=== PATIENT | female | born 1945 | race Caucasian/White ===

== ENCOUNTER 2016-09-26 21:55 | Emergency (ER) | payer MEDICARE ==
[2016-09-27] MEDS ORDERED: Tetan/Diph/Pertus SYR(Tdap)* 0.5 ML SYR(BOOSTRIX) use SYR IM ONE (00:26)
--- NOTE | 2016-09-27 00:37 | ED ---
Laceration/Wound HPI - HPI Summary HPI Summary: Patient was walking at home when she slipped and suffered a mechanical fall, landing forward and striking her left forehead on the floor. She denies LOC, ESCALERA , vision changes, neck pain or vomiting. Her was home and saw her slip. He helped her up and she presents with him and her daughter. She is unsure if her tetanus is UTD. She takes 81mg of aspirin daily. - History of Current Complaint Stated Complaint: FALL/ EYE INJURY Time Seen by Provider: 09/27/16 00:16 Hx Obtained From: Patient, Family/Haul Cane Brakeman Mechanism of Injury: Sharp/Blunt Trauma Onset/Duration: Sudden Onset Aggravating: Nothing Alleviating: Nothing Timing: Constant Onset Severity: Mild Current Severity: Mild Pain Intensity: 3 Associated Signs & Symptoms: Pain, Bruising - left eyebrow - Additional Pertinent History Primary Care Physician: [id number] - Allergy/Home Medications Allergies/Adverse Reactions: Allergies Allergy/AdvReac Type Severity Reaction Status Date / Time No Known Allergies Allergy Verified 11/13/15 19:20 PMH/Surg Hx/FS Hx/Imm Hx Endocrine/Hematology History: Reports: Hx Bone Marrow Disease - MDS, Hx Anemia Cardiovascular History: Reports: Hx Hypertension Respiratory History: Reports: Hx Chronic Obstructive Pulmonary Disease (COPD) GI History: Reports: Other GI Disorders - active bleeding hemorrhoid Musculoskeletal History: Reports: Hx Orthopedic Injury - Left humerus, wrist fx , L shoulder dislocation 10/2015 - Surgical History Surgery Procedure, Year, and Place: Appendectomy, Tonsillectomy Infectious Disease History: Denies: Traveled Outside the [place] in Last 30 Days - Family History Known Family History: Positive: None - Social History Occupation: Retired Lives: With Family Alcohol Use: None Hx Substance Use: No Substance Use Type: Reports: None Smoking Status (MU): Former Smoker Type: Cigarettes Review of Systems Negative: Photophobia, Blurred Vision Positive: Bruising, Other - 2 cm laceration to left eyebrow Negative: Headache, Paresthesia, Numbness All Other Systems Reviewed And Are Negative: Yes Physical Exam Triage Information Reviewed: Yes Vital Signs On Initial Exam: Initial Vitals Temp Pulse Resp BP Pulse Ox 98 F 81 18 143/60 99 09/26/16 21:59 09/26/16 21:59 09/26/16 21:59 09/26/16 21:59 09/26/16 21:59 Vital Signs Reviewed: Yes Appearance: Positive: Well-Appearing, Well-Nourished, Pain Distress Skin: Positive: Warm, Skin Color Reflects Adequate Perfusion, Dry, Soft Head/Face: Positive: Normal Head/Face Inspection Eyes: Positive: EOMI, PAVEL, Conjunctiva Clear ENT: Positive: Hearing grossly normal, Pharynx normal, TMs normal Neck: Positive: Supple, Nontender Respiratory/Lung Sounds: Positive: Breath Sounds Present Cardiovascular: Positive: RRR Musculoskeletal: Positive: Strength/ROM Intact. Negative: Edema Left, Edema Right Neurological: Positive: Sensory/Motor Intact, Alert, Oriented to Person Place, Time, CN Intact II-III, NV Bundle Intact Distally Psychiatric: Positive: Affect/Mood Appropriate AVPU Assessment: Alert Procedures - Laceration/Wound Repair 1 Location: face Description: Linear Anesthesia: Local, 2.0%, Lido Length, Depth and Shape: 2 cm long, 5mm wide, 3mm deep Irrigated w/ Saline (ccs): 200 Laceration/Wound Explored: clean Closure: Single Layer Debridement: minimal Suture Type: Prolene - 5.0 Number of Sutures: 7 Layer Closure?: No Sterile Dressing Applied?: No Diagnostics - Vital Signs Vital Signs Temp Pulse Resp BP Pulse Ox 09/26/16 23:00 80 18 136/60 99 09/26/16 21:59 98 F 81 18 143/60 99 - Laboratory Lab Statement: Any lab studies that have been ordered have been reviewed, and results considered in the medical decision making process. - CT No standard instances CT Interpretation: No Acute Changes CT Interpretation Completed By: Radiologist Laceration Repair Course/Dx - Differential Dx Differental Diagnoses: Abrasion, Abscess, Avulsion, Dehiscence, Healing Wound, Hematoma, Laceration, Puncture Wound, Suture Removal - Clinical Impression Provider Diagnoses: Laceration of left eyebrow, Head injury Discharge - Discharge Plan Condition: Stable Disposition: HOME Patient Education Materials: Facial Laceration (ED), Head Injury (ED) Referrals: Francheska Howard MD [Primary Care Provider] - Additional Instructions: Keep your wound clean and dry for the next 24 hours. You may shower after 24 hours. Pat dry and cover with a clean, dry band-aid if you are going to be in a "dirty" environment, otherwise it can remain open to air. Apply triple antibiotic for the next 2-3 days. Do not soak the wound in any body of water until the sutures are removed in 5 days. Elevate your head above your heart and use Tylenol for pain. Follow-up with Dr. Howard as scheduled and have your sutures removed in 5 days with her office or return to the emergency department or convenient care to have them taken out. Return to the emergency department sooner if your symptoms worsen.
[2016-09-27 02:38] VITALS: BP 149/66
--- NOTE | 2016-09-27 08:11 | RAD ---
Indication: Head injury after fall. Patient on anticoagulants. CT of the brain was performed without IV contrast. Ventricular structures are midline. No midline shift is noted. There is no evidence of intracranial mass or hemorrhage. Periventricular lucency consistent with chronic ischemic White matter change is noted. Tiny hypodensity in the left thalamus likely represent old lacunar infarct. Mastoid air cells, paranasal sinuses are clear. No prior study is available for comparison. IMPRESSION: No intracranial mass or hemorrhage. Chronic ischemic White matter change is noted.
== END 2016-09-27 02:37 | disposition home or self-care (01) ==
LOC: ED 21:55
DX: S00.12XA Contusion of left eyelid and periocular area, initial encounter (principal); S01.112A Laceration without foreign body of left eyelid and periocular area, initial encounter; S09.90XA Unspecified injury of head, initial encounter; W19.XXXA Unspecified fall, initial encounter; Y93.9 Activity, unspecified; Y92.9 Unspecified place or not applicable; Y99.9 Unspecified external cause status; Z87.891 Personal history of nicotine dependence
CPT/HCPCS: 12001; 70450; 90471; 90715; 99282

== ENCOUNTER 2017-11-16 10:37 | Inpatient (IN) | payer MEDICARE, BC ==
--- NOTE | 2017-11-16 12:25 | ED ---
Shortness of Breath - HPI Summary HPI Summary: This is scribe Sandy Melgoza documenting for attending Kike Figueroa MD. 72 year old F [facility] accompanied by and daughter complains of increasing shortness of breath since four days ago. Symptoms aggravated by nothing. Symptoms alleviated by nothing. Daughter states that patient hasn't felt well since receiving her last Procrit shot on 11/04/17. Daughter reports fatigue and increasing cough. Also inability to ambulate x2 days, patient fell twice yesterday. She uses O2 at home per daughter. Patient has hx COPD. - History of Current Complaint Chief Complaint: EDShortnessOfBreath Time Seen by Provider: 11/16/17 12:12 Hx Obtained From: Family/Ice Grinder - daughter Onset/Duration: Lasting Days - 4, Still Present Timing: Constant Aggrevating Factors: Nothing Alleviating Factors: Nothing - Allergy/Home Medications Allergies/Adverse Reactions: Allergies Allergy/AdvReac Type Severity Reaction Status Date / Time No Known Allergies Allergy Verified 11/13/15 19:20 Home Medications: Home Medications Albuterol HFA INHALER* [Ventolin HFA Inhaler*] 2 puff INH Q4H PRN 11/16/17 [ History Confirmed 11/16/17] Aspirin EC TAB* [Ecotrin EC Low Dose 81 MG*] 81 mg PO DAILY 11/16/17 [History Confirmed 11/16/17] Budesonide/Formote 160/4.5(NF) [Symbicort 160/4.5 (NF)] 1 puff INH BID 11/16/17 [History Confirmed 11/16/17] Docusate CAP* [Colace Cap*] 100 mg PO BID PRN 11/16/17 [History Confirmed ] Ibandronate TAB(NF) [Boniva(NF)] 150 mg PO MONTHLY 11/16/17 [History Confirmed 11/16/17] Levalbuterol 0.63MG/3ML NEB* [Xopenex 0.63MG/3ML NEB*] 0.63 mg INH Q4H PRN 11/16 [History Confirmed 11/16/17] guaiFENesin ER TAB [Mucinex*] 600 mg PO BID PRN 11/16/17 [History Confirmed ] PMH/Surg Hx/FS Hx/Imm Hx Previously Healthy: No Endocrine/Hematology History: Reports: Hx Bone Marrow Disease - MDS, Hx Anemia Cardiovascular History: Reports: Hx Hypertension Respiratory History: Reports: Hx Chronic Obstructive Pulmonary Disease (COPD) GI History: Reports: Other GI Disorders - active bleeding hemorrhoid Musculoskeletal History: Reports: Hx Orthopedic Injury - Left humerus, wrist fx , L shoulder dislocation 10/2015 - Surgical History Surgery Procedure, Year, and Place: Appendectomy, Tonsillectomy Infectious Disease History: No Infectious Disease History: Denies: Traveled Outside the [place] in Last 30 Days - Family History Known Family History: Positive: Other - Mother had breast CA, father had colon CA - Social History Alcohol Use: None Hx Substance Use: No Substance Use Type: Reports: None Hx Tobacco Use: Yes Smoking Status (MU): Former Smoker Type: Cigarettes Review of Systems Positive: Fatigue, Other - inability to ambulate x2 days, fell twice yesterday Positive: Shortness Of Breath - x4 days, Cough All Other Systems Reviewed And Are Negative: Yes Physical Exam - Summary Physical Exam Summary: Appearance: The patient is well-nourished in no acute distress and in no acute pain. Skin: The skin is warm and dry and skin color reflects adequate perfusion. HEENT: The head is normocephalic and atraumatic. The pupils are equal and reactive. The conjunctivae are clear and without drainage. Nares are patent and without drainage. Mouth reveals moist mucous membranes and the throat is without erythema and exudate. The external ears are intact. The ear canals are patent and without drainage. The tympanic membranes are intact. Neck: The neck is supple with full range of motion and non-tender. There are no carotid bruits. There is no neck vein distension. Respiratory: Coarse crackles on the left Cardiovascular: Heart is regular rate and rhythm. There is no murmur or rub auscultated. There is no peripheral edema and pulses are symmetrical and equal. Abdomen: The abdomen is soft and non-tender. There are normal bowel sounds heard in all four quadrants and there is no organomegaly palpated. Musculoskeletal: There is no back tenderness noted. Extremities are non-tender with full range of motion. There is good capillary refill. There is no peripheral edema or calf tenderness elicited. Neurological: Patient is stuporous but arouses to voice and answers questions Psychiatric: The patient has an appropriate affect and does not exhibit any anxiety or depression. Triage Information Reviewed: Yes Vital Signs On Initial Exam: Initial Vitals Temp Pulse Resp BP Pulse Ox 98.5 F 91 20 125/44 88 11/16/17 10:39 11/16/17 10:39 11/16/17 10:39 11/16/17 10:39 11/16/17 10:39 Vital Signs Reviewed: Yes Diagnostics - Vital Signs Vital Signs Temp Pulse Resp BP Pulse Ox 11/16/17 12:09 20 156/71 11/16/17 11:56 98.3 F 109 20 128/53 30 11/16/17 10:39 98.5 F 91 20 125/44 88 - Laboratory Result Diagrams: 11/16/17 11:47 11/16/17 11:47 Lab Statement: Any lab studies that have been ordered have been reviewed, and results considered in the medical decision making process. - Radiology CXR Radiology Interpretation Completed By: Radiologist - 1. LEFT BASILAR INFILTRATE , RECOMMEND FOLLOW-UP CHEST X-RAYS TO RESOLUTION. 2. COPD. ED physician has reviewed this report. - CT Brain CT Interpretation Completed By: Radiologist - 1. NO EVIDENCE FOR GROSS ACUTE INFARCT, MASS EFFECT OR HEMORRHAGE. 2. 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 3. FINDINGS SUGGESTIVE OF MILD CHRONIC SMALL VESSEL ISCHEMIC CHANGES. ED physician has reviewed this report. Course/Dx - Course Course Of Treatment: Ms. Coyne was brought in by her family with a concern that she has been short of breath for several days and now her mental status has decreased. On arrival she was mildly stuporous but would arouse to voice and could answer questions mostly appropriately. Chest x-ray and labs were obtained as well as an ABG which revealed her to be quite hypercarbic. She was placed on BiPAP and the hospitalists were consult her for admission. - Diagnoses Provider Diagnoses: Altered mental status, Hypercarbia - Physician Notifications Discussed Care of Patient With: Ovi St Time Discussed With Above Provider: 14:00 Instructed by Provider To: Other - Dr. St, hospitalist, agrees to admit patient Discharge - Sign-Out/Discharge Documenting (check all that apply): Patient Departure - Admit - Discharge Plan Condition: Fair Disposition: ADMITTED TO [facility] - Billing Disposition and Condition Condition: FAIR Disposition: Admitted to [facility]
[2017-11-16 12:33] LABS: ABS Basophils 0 10^3/ul (0-0.2); ABS Eosinophils 0 10^3/ul (0-0.6); ABS Lymphocytes 0.5 10^3/ul (1.0-4.8); ABS Monocytes 0.7 10^3/ul (0-0.8); ABS Neutrophils 8.4 10^3/ul (1.5-7.7); ABS Nucleated RBC 0 10^3/ul; Eosinophil % 0.1 % (0-6); Hematocrit 34 % (35-47); Hemoglobin 10.1 g/dl (12.0-16.0); Lymphocyte % 4.7 % (25-47); Mean Corpuscular HGB Conc 30 g/dl (31-36); Mean Corpuscular Hemoglobin 31 pg (27-31); Mean Corpuscular Volume 104 fL (80-97); Mean Platelet Volume 7.8 um3 (7.4-10.4); Nucleated Red Blood Cells % 0.1; Platelet Count 214 10^3/ul (150-450); Red Cell Distribution Width 19 % (10.5-15); White Blood Count 9.5 10^3/ul (3.5-10.8)
[2017-11-16 12:35] LABS: EGFR Non-African American 35.5 (>60)
[2017-11-16] MEDS ORDERED: NS 0.9% 1000 ML* 1,000 ML IV ONE (13:20)
--- NOTE | 2017-11-16 14:48 | RAD ---
INDICATION: Altered mental status. COMPARISON: There are no prior studies available for comparison. TECHNIQUE: A portable view of the chest was obtained. FINDINGS: The heart appears mildly enlarged. There is mild diffuse prominence of the interstitial markings and a focal infiltrate present at the left lung base. The lungs are hyperinflated. There is an old healed fracture of the proximal left humerus. IMPRESSION: 1. LEFT BASILAR INFILTRATE, RECOMMEND FOLLOW-UP CHEST X-RAYS TO RESOLUTION. 2. COPD.
--- NOTE | 2017-11-16 14:59 | RAD ---
INDICATION: Altered mental status. COMPARISON: Correlation is made with a prior CT of the brain from September 27, 2016. TECHNIQUE: Contiguous axial sections of the brain were obtained from the skull base to the vertex without contrast. FINDINGS: The ventricles, cisterns and sulci are enlarged consistent with age-related atrophy. There are small areas of decreased density in the subcortical and periventricular white matter suggestive of mild chronic small vessel ischemic changes. There appears to be an old lacunar infarct in the left lentiform nucleus. There is no evidence for hemorrhage. No significant focal osseous abnormality is seen. The visualized portion of the paranasal sinuses and mastoid air cells appear clear. IMPRESSION: 1. NO EVIDENCE FOR GROSS ACUTE INFARCT, MASS EFFECT OR HEMORRHAGE. 2. 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 3. FINDINGS SUGGESTIVE OF MILD CHRONIC SMALL VESSEL ISCHEMIC CHANGES.
[2017-11-16] MEDS ORDERED: guaiFENesin ER TAB 600 MG PO PRN (16:10)
[2017-11-16] MEDS ORDERED: Docusate CAP* 100 MG PO PRN (16:10)
[2017-11-16] MEDS ORDERED: Levalbuterol 0.63MG/3ML NEB* UNIT OF USE INH PRN ×2 (16:10→17:44)
[2017-11-16] MEDS ORDERED: methylPREDNISolone 125 MG* 2 ML VIAL IV ONE (16:32)
[2017-11-16] MEDS ORDERED: Spiriva Inhaler DEVICE* 1 EACH DEVICE SCH (17:00)
[2017-11-16] MEDS ORDERED: Tiotropium CAP.INH* CAP.INH/18 MCG (USE ORDER SET !) INH SCH (17:00)
[2017-11-16] MEDS ORDERED: Ipratropium 0.5MG/2.5ML NEB* 0.5 MG/2.5 ML NEB.SOLN INH PRN ×2 (17:06→17:48)
--- NOTE | 2017-11-16 17:30 | CONSULT ---
Consult Consult: CC: Weakness HPI: 72F with MDS, Severe COPD on home o2 presents with weakness. The patient is confused and is unable to provide history. History obtained from the family. The patient has been weak for the past 4 days as well as short of breath. They deny any fever or chills. She does have a small cough. They brought her to the ER and was found have acute on chronic respiratory failure with a pCO2 of 160. She was started on bipap and admitted to ICU. ROS - unable 2/2 AMS PMHx - MDS, COPD on home o2 4.5L PSHx - Denies All - nkda SocHx - former smoker, no drugs, no etoh FamHx - denies PE Vital Signs: Temp Pulse Resp BP Pulse Ox 97.8 F 101 20 151/67 97 11/16/17 15:23 11/16/17 17:00 11/16/17 17:00 11/16/17 16:39 11/16/17 17:00 Gen - chronically ill HEENT - NCAT, EOMI Neck - no jvd, no thyromegaly CV - s1/s2, tachy Pulm - cta, +ronchi L > R, mild wheeze Abd - soft, nt, nd Ext - trace edema Neuro - Oriented only to self, following commands, moving all extremities Labs Laboratory Results - last 24 hr 11/16/17 11/16/17 11/16/17 11:47 11:47 11:47 WBC 9.5 RBC 3.30 L Hgb 10.1 L Hct 34 L MCV 104 H MCH 31 MCHC 30 L RDW 19 H Plt Count 214 MPV 7.8 Neut % (Auto) 87.6 H Lymph % (Auto) 4.7 L Pitt % (Auto) 7.3 H Eos % (Auto) 0.1 Baso % (Auto) 0.3 Absolute Neuts (auto) 8.4 H Absolute Lymphs (auto) 0.5 L Absolute Monos (auto) 0.7 Absolute Eos (auto) 0 Absolute Basos (auto) 0 Absolute Nucleated RBC 0 Nucleated RBC % 0.1 Patient Temperature ABG pH ABG pH (Temp Correct) ABG pCO2 ABG pCO2 (Temp Corrct ABG pO2 ABG pO2 (Temp Correct ABG HCO3 ABG O2 Saturation ABG Base Excess Respiration Rate O2 Delivery Device Ventilator Type Vent Mode FiO2 Inspiratory Time PEEP Pressure Support Pressure Control EPAP IPAP BiPAP Sodium 141 Potassium 5.0 Chloride 94 L Carbon Dioxide 44 H* Anion Gap 3 BUN 55 H Creatinine 1.45 H Est GFR ( Amer) 43.0 Est GFR (Non-Af Amer) 35.5 BUN/Creatinine Ratio 37.9 H Glucose 146 H Lactic Acid 0.4 L Calcium 9.9 Total Bilirubin 0.40 AST 15 ALT 14 Alkaline Phosphatase 66 Troponin I 0.04 H* B-Natriuretic Peptide Total Protein 7.7 Albumin 3.7 Globulin 4.0 Albumin/Globulin Ratio 0.9 L Procalcitonin 11/16/17 11/16/17 11/16/17 11:47 11:47 16:15 WBC RBC Hgb Hct MCV MCH MCHC RDW Plt Count MPV Neut % (Auto) Lymph % (Auto) Pitt % (Auto) Eos % (Auto) Baso % (Auto) Absolute Neuts (auto) Absolute Lymphs (auto) Absolute Monos (auto) Absolute Eos (auto) Absolute Basos (auto) Absolute Nucleated RBC Nucleated RBC % Patient Temperature Not Reportable ABG pH 7.07 L* ABG pH (Temp Correct) Not Reportable ABG pCO2 Not Reportable ABG pCO2 (Temp Corrct 162 H* ABG pO2 137 H ABG pO2 (Temp Correct Not Reportable ABG HCO3 TNP ABG O2 Saturation 99.3 H ABG Base Excess TNP Respiration Rate Not Reportable O2 Delivery Device nasal cannula 6lpm Ventilator Type Not Reportable Vent Mode Not Reportable FiO2 Not Reportable Inspiratory Time Not Reportable PEEP Not Reportable Pressure Support Not Reportable Pressure Control Not Reportable EPAP Not Reportable IPAP Not Reportable BiPAP Not Reportable Sodium Potassium Chloride Carbon Dioxide Anion Gap BUN Creatinine Est GFR ( Amer) Est GFR (Non-Af Amer) BUN/Creatinine Ratio Glucose Lactic Acid Calcium Total Bilirubin AST ALT Alkaline Phosphatase Troponin I B-Natriuretic Peptide 167 H Total Protein Albumin Globulin Albumin/Globulin Ratio Procalcitonin 0.3 Imaging 11/16/17 CXR IMPRESSION: 1. LEFT BASILAR INFILTRATE, RECOMMEND FOLLOW-UP CHEST X-RAYS TO RESOLUTION. 2. COPD. 11/16/17 CT Head IMPRESSION: 1. NO EVIDENCE FOR GROSS ACUTE INFARCT, MASS EFFECT OR HEMORRHAGE. 2. 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 3. FINDINGS SUGGESTIVE OF MILD CHRONIC SMALL VESSEL ISCHEMIC CHANGES 11/16/17 EKG Sinus Tach Impression 72F with MDS, severe copd on home o2 presents with COPD exacerbation 2/2 community acquired pneumonia Plan Neuro - AMS - 2/2 hypercapnea - CT head negative for acute process CV - tachycardia - 2/2 pna and copd exacerbation - BP stable - check tte Pulm - copd exacerbation - severe hypercapnea - solumedrol iv q12 - nebulizers q4 and prn - abx for pna - bipap - monitor abg ID - cap - left basilar infiltrate on cxr - empiric ceftriaxone and azithro - f/u blood cultures - check urine pneumo/legionella ag - check ua - serial lactates - iv hydration GI - diet as tolerated Renal - monitor lytes - monitor i/o Heme - MDS - monitor cbc - keep hgb > 7 Endo - check fs Lines - piv PPx - gi/dvt Full Code - family to discuss goals of care Admit to ICU Critical Care Time: 55 minutes
[2017-11-16] MEDS: cefTRIAXone(*) 1 GM in NS 0.9% 50 ML* 50 ML IVPB SCH (18:12)
[2017-11-16] MEDS: Levalbuterol 0.63MG/3ML NEB* UNIT OF USE INH SCH ×2 (18:24→22:56)
[2017-11-16] MEDS: Ipratropium 0.5MG/2.5ML NEB* 0.5 MG/2.5 ML NEB.SOLN INH SCH ×2 (18:25→22:56)
[2017-11-16 18:53] LABS: Urine Appearance Cloudy; Urine Blood Negative (Negative); Urine Color Yellow; Urine Ketones Negative (Negative); Urine Protein 2+(100 mg/dL) (Negative); Urine Red Blood Cell Absent (Absent); Urine Specific Gravity 1.018 (1.010-1.030); Urine Urobilinogen Negative (Negative); Urine White Blood Cell Trace(0-5/hpf) (Absent)
[2017-11-16] MEDS: Azithromycin IV(*) 500 MG in NS 0.9% 250 ML* 250 ML IVPB SCH (18:57)
--- NOTE | 2017-11-16 21:47 | HP ---
HISTORY AND PHYSICAL: DATE OF ADMISSION: 11/16/17 ADMITTING PROVIDER: Ovi St MD ATTENDING PHYSICIAN: Dr. Abel, [place], [place], . OUTPATIENT ANIME DESIGNER: Dr. Mix [place]. LOCAL PRIMARY CARE PHYSICIAN: Blessing Lim MD CHIEF COMPLAINT: Progressive shortness of breath, fatigue, lethargy, inability to walk, and constipation. HISTORY OF PRESENT ILLNESS: Flavia Coyne is a 72-year-old female with past medical history of myelodysplasia, severe COPD with chronic respiratory failure , (using 4.5 L 24 hours a day), who usually resides in [place], [place]. She has had 2 episodes of outpatient diagnosis of pneumonia, sounds like she was treated with what family thinks was azithromycin first in June and then again likely in July along with a prednisone taper at some point, but not within the last few months. The patient follows up with Heme/Onc Dr. Rita Howard for Procrit shots for her myelodysplasia. She last received on 11/04/17. This usually improves her fatigue, but she has actually worsened since that time - very tired and stopped going out of the house for the last 10 days. She has stopped walking for the last 36 hours (last Thursday night), and has been wheelchair bound. She saw PCP Dr. Lim today, who referred her to the emergency room. She was found to be requiring 6 L of oxygen, of note, recorded at 88% on her 4.5 L. She has been tachycardic up to 109. She had initial elevated troponin of 0.04. EKG shows sinus tachycardia. No ischemic changes. She had a CT of the head, which showed an old left lacunar infarct. No acute process. An ABG is ordered and pending given her lethargy and confusion in the room. She did, of note, have an elevated bicarb of 44, previous baseline last year in the high 30s to 40s. Her daughter, Carmen Mace, gives most of the history, says on review of systems, she denies fever, is chronically cool, has no nausea, vomiting, abdominal pain, or night sweats. She has been constipated and had mag citrate within the last week. Last bowel movement was approximately Thursday. She had been sleeping a lot, very fatigued, denies any chest pain or pressure. The patient was not initially able to give much history , just stating "Flavia Alejandro" in response to most of questions. She would eventually say 2017 and [place], [place] as the time and location respectively and said she was feeling a little bit better since presentation to ED. Chest x- ray showed concern for left basilar infiltrate. She is being started on ceftriaxone, azithromycin after urine culture is obtained. Blood cultures were also obtained. PAST MEDICAL HISTORY: Myelodysplasia, severe COPD with chronic hypoxic respiratory failure, 4.5 L. MEDICATIONS: She is on: 1. Ventolin 2 puffs inhaled q.4 hours p.r.n.. 2. Xopenex 0.63 mg inhaled q. 4 hours p.r.n. 3. Docusate 100 mg p.o. b.i.d. p.r.n. 4. Symbicort 1 puff inhaled b.i.d. 5. Mucinex 600 mg p.o. b.i.d. p.r.n. 6. Boniva 150 mg p.o. monthly. 7. Aspirin 81 mg daily. ALLERGIES: No known drug allergies. FAMILY HISTORY: Mother had breast cancer. Father had colon cancer. SOCIAL HISTORY: She was a former smoker, quit approximately 20 years ago, multiple packs a day for most of her adult life and approximately 60 to 70 pack years. No alcohol use. REVIEW OF SYSTEMS: A complete 14-point review of systems negative except as per HPI and somewhat limited by the patient's mental status and provided by her daughter Carmen Mace. PHYSICAL EXAMINATION GENERAL APPEARANCE: The patient looks acutely ill, barely responsive, and very lethargic, saying her name initially "Flavia Alejandro" to questions. VITAL SIGNS: Temperature 97.8, pulse rate 100, respiratory rate 18, saturation 100%, blood pressure 148/64. HEENT: Normocephalic, atraumatic. Pupils are equal, round, and reactive to light. Extraocular motions intact. LUNGS: Distant lung sounds bilaterally with some expiratory wheezing. CARDIAC: Tachycardic, regular. No murmurs, rubs, or gallops. ABDOMEN: Soft, nontender, and nondistended. EXTREMITIES: Warm and well perfused. 1 to 2+ peripheral edema. 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 She seems to have a slight right facial droop, that improves with smiling. She is able to raise her right lower extremity with hip flexion at least 4+/5. Left lower extremity is 3- to 2+. DIAGNOSTIC STUDIES/LAB DATA: White count 9.5, hemoglobin 10.1, hematocrit 34, MCV 104, platelets 214. Sodium 141, potassium 5.0, chloride 94, carbon dioxide 44, creatinine 1.45, glucose 146, lactic acid 0.4. Total bili 0.4, AST 15, ALT 14, alk phos 66. Troponin 0.04. Procalcitonin 0.3. Now just returning is the ABG, pH 7.07, PCO2 162, PO2 137, bicarb not performed. Chest x-ray demonstrated left basilar infiltrate and COPD. CT of the head demonstrated no evidence for gross acute infarct, mass effect, or hemorrhage. There was old left-sided lacunar infarct. This finding is suggestive of mild chronic small vessel ischemic changes. EKG demonstrates sinus tachycardia, no ischemic changes, 103, QTc 413, normal axis. ASSESSMENT AND PLAN: Flavia Coyne is a 72-year-old female with past medical history of severe chronic obstructive pulmonary disease with chronic hypoxic and likely hypercapnic respiratory failure, on 4.5 L chronically, and 2 pneumonias (3-4 months ago) with progressive decline over the week and acute progressive decline over the last 2 days with lethargy, inability to ambulate. She is now returning with critical lab values on her ABG, acute hypercapnic respiratory failure with PCO2 of 162, pH of 7.07. Dr. Mccloud of ICU has now been consulted. Prior to this result, we have started antibiotics for the left lower infiltrate and sepsis secondary to potential pneumonia, ceftriaxone and azithromycin. Giving solumedrol 125mg, duo nebs vs xopenex, dulera and spiriva. Her troponins have been elevated at 0.04. We will trend those likely in the setting of demand ischemia. We will continue telemetry. Procalcitonin 0.3. She will need to be either intubated or BiPAP'd (pending Dr. Mccloud's assessment) for her hypercapnic respiratory failure, transfer her to intensive care service. She is a full code. Medical surrogates are her daughter, Carmen and , Palu Coyne. Of note: PCP Dr. Lim also called ED and case was discussed with her. [id number]/CPS #: [id number] DANIELLE
[2017-11-16] MEDS: Heparin VIAL(*) 5000 UNITS/ML VIAL (FIVE THOUSAND) SUBCUT SCH (22:23)
[2017-11-17] MEDS: Mometasone/Formoter 200/5 MDI INH SCH ×3 (01:20→20:00)
[2017-11-17] MEDS: Ipratropium 0.5MG/2.5ML NEB* 0.5 MG/2.5 ML NEB.SOLN INH SCH ×6 (03:08→22:55)
[2017-11-17] MEDS: Levalbuterol 0.63MG/3ML NEB* UNIT OF USE INH SCH ×6 (03:09→22:55)
[2017-11-17 05:32] LABS: INR 0.89 (0.77-1.02)
[2017-11-17 05:39] LABS: EGFR Non-African American 38.9 (>60)
[2017-11-17 05:53] LABS: ABS Basophils 0 10^3/ul (0-0.2); ABS Eosinophils 0 10^3/ul (0-0.6); ABS Lymphocytes 0.2 10^3/ul (1.0-4.8); ABS Monocytes 0.1 10^3/ul (0-0.8); ABS Nucleated RBC 0 10^3/ul; Eosinophil % 0 % (0-6); Hematocrit 23 % (35-47); Hemoglobin 6.8 g/dl (12.0-16.0); Lymphocyte % 3.5 % (25-47); Mean Corpuscular HGB Conc 30 g/dl (31-36); Mean Corpuscular Hemoglobin 31 pg (27-31); Mean Corpuscular Volume 104 fL (80-97); Mean Platelet Volume 7.6 um3 (7.4-10.4); Nucleated Red Blood Cells % 0; Platelet Count 194 10^3/ul (150-450); Red Cell Distribution Width 19 % (10.5-15); White Blood Count 5.3 10^3/ul (3.5-10.8)
[2017-11-17] MEDS: Heparin VIAL(*) 5000 UNITS/ML VIAL (FIVE THOUSAND) SUBCUT SCH ×3 (05:59→22:18)
[2017-11-17] MEDS: methylPREDNISolone SOD 40 MG* 1 ML VIAL IV SCH ×2 (07:36→20:24)
--- NOTE | 2017-11-17 08:58 | PN ---
Date of Service: 11/17/17 Critical Care Services: 72F with MDS, severe copd on home o2 presents with COPD exacerbation 2/2 community acquired pneumonia 11/17: hypercapnea and mental status improving. hgb dropped this am. Vital Signs: Temp Pulse Resp BP SpO2 FiO2 89.6 F 83 19 131/56 97 55 11/17/17 08:00 11/17/17 08:00 11/17/17 08:00 11/17/17 08:00 11/17/17 08:00 11/17 08:00 Physical Exam: Gen - chronically ill HEENT - NCAT, EOMI Neck - no jvd, no thyromegaly CV - s1/s2, tachy Pulm - cta, +ronchi L > R, mild wheeze Abd - soft, nt, nd Ext - trace edema Neuro - Improved mentation, following commands, moving all extremities Fluid Balance (Past 24 Hours): I= O= Net Intake & Output 11/15/17 11/16/17 11/17/17 11/18/17 06:59 06:59 06:59 06:59 Intake Total 1777 Output Total 705 25 Balance 1072 -25 Weight 57 kg Intake: IV Fluids 1462 NS (0.9%) 157 IVPB 315 ABX - AZITHROMYCIN 260 ABX - CEFTRIAXONE 55 Output: Martins 705 25 Labs: Laboratory Results - last 24 hr 11/16/17 11/16/17 11/16/17 11:47 11:47 11:47 WBC 9.5 RBC 3.30 L Hgb 10.1 L Hct 34 L MCV 104 H MCH 31 MCHC 30 L RDW 19 H Plt Count 214 MPV 7.8 Neut % (Auto) 87.6 H Lymph % (Auto) 4.7 L [place] % (Auto) 7.3 H Eos % (Auto) 0.1 Baso % (Auto) 0.3 Absolute Neuts (auto) 8.4 H Absolute Lymphs (auto) 0.5 L Absolute Monos (auto) 0.7 Absolute Eos (auto) 0 Absolute Basos (auto) 0 Absolute Nucleated RBC 0 Nucleated RBC % 0.1 INR (Anticoag Therapy) APTT Patient Temperature ABG pH ABG pH (Temp Correct) ABG pCO2 ABG pCO2 (Temp Corrct ABG pO2 ABG pO2 (Temp Correct ABG HCO3 ABG O2 Saturation ABG Base Excess Respiration Rate O2 Delivery Device Ventilator Type Vent Mode FiO2 Inspiratory Time PEEP Pressure Support Pressure Control EPAP IPAP BiPAP Sodium 141 Potassium 5.0 Chloride 94 L Carbon Dioxide 44 H* Anion Gap 3 BUN 55 H Creatinine 1.45 H Est GFR ( Amer) 43.0 Est GFR (Non-Af Amer) 35.5 BUN/Creatinine Ratio 37.9 H Glucose 146 H Lactic Acid 0.4 L Calcium 9.9 Magnesium Total Bilirubin 0.40 AST 15 ALT 14 Alkaline Phosphatase 66 Troponin I 0.04 H* B-Natriuretic Peptide Total Protein 7.7 Albumin 3.7 Globulin 4.0 Albumin/Globulin Ratio 0.9 L Procalcitonin Urine Color Urine Appearance Urine pH Ur Specific [place] Urine Protein Urine Ketones Urine Blood Urine Nitrate Urine Bilirubin Urine Urobilinogen Ur Leukocyte Esterase Urine WBC (Auto) Urine RBC (Auto) Urine Bacteria Granular Casts Urine Glucose Urine Ascorbic Acid 11/16/17 11/16/17 11/16/17 11:47 11:47 16:15 WBC RBC Hgb Hct MCV MCH MCHC RDW Plt Count MPV Neut % (Auto) Lymph % (Auto) [place] % (Auto) Eos % (Auto) Baso % (Auto) Absolute Neuts (auto) Absolute Lymphs (auto) Absolute Monos (auto) Absolute Eos (auto) Absolute Basos (auto) Absolute Nucleated RBC Nucleated RBC % INR (Anticoag Therapy) APTT Patient Temperature Not Reportable ABG pH 7.07 L* ABG pH (Temp Correct) Not Reportable ABG pCO2 Not Reportable ABG pCO2 (Temp Corrct 162 H* ABG pO2 137 H ABG pO2 (Temp Correct Not Reportable ABG HCO3 TNP ABG O2 Saturation 99.3 H ABG Base Excess TNP Respiration Rate Not Reportable O2 Delivery Device nasal cannula 6lpm Ventilator Type Not Reportable Vent Mode Not Reportable FiO2 Not Reportable Inspiratory Time Not Reportable PEEP Not Reportable Pressure Support Not Reportable Pressure Control Not Reportable EPAP Not Reportable IPAP Not Reportable BiPAP Not Reportable Sodium Potassium Chloride Carbon Dioxide Anion Gap BUN Creatinine Est GFR ( Amer) Est GFR (Non-Af Amer) BUN/Creatinine Ratio Glucose Lactic Acid Calcium Magnesium Total Bilirubin AST ALT Alkaline Phosphatase Troponin I B-Natriuretic Peptide 167 H Total Protein Albumin Globulin Albumin/Globulin Ratio Procalcitonin 0.3 Urine Color Urine Appearance Urine pH Ur Specific [place] Urine Protein Urine Ketones Urine Blood Urine Nitrate Urine Bilirubin Urine Urobilinogen Ur Leukocyte Esterase Urine WBC (Auto) Urine RBC (Auto) Urine Bacteria Granular Casts Urine Glucose Urine Ascorbic Acid 11/16/17 11/16/17 11/16/17 17:57 18:05 18:18 WBC RBC Hgb Hct MCV MCH MCHC RDW Plt Count MPV Neut % (Auto) Lymph % (Auto) [place] % (Auto) Eos % (Auto) Baso % (Auto) Absolute Neuts (auto) Absolute Lymphs (auto) Absolute Monos (auto) Absolute Eos (auto) Absolute Basos (auto) Absolute Nucleated RBC Nucleated RBC % INR (Anticoag Therapy) APTT Patient Temperature Not Reportable ABG pH 7.06 L* ABG pH (Temp Correct) Not Reportable ABG pCO2 Not Reportable ABG pCO2 (Temp Corrct 166 H* ABG pO2 226 H ABG pO2 (Temp Correct Not Reportable ABG HCO3 TNP ABG O2 Saturation 99.6 H ABG Base Excess TNP Respiration Rate Not Reportable O2 Delivery Device bipap Ventilator Type Not Reportable Vent Mode Not Reportable FiO2 100 Inspiratory Time Not Reportable PEEP Not Reportable Pressure Support Not Reportable Pressure Control Not Reportable EPAP Not Reportable IPAP Not Reportable BiPAP Not Reportable Sodium Potassium Chloride Carbon Dioxide Anion Gap BUN Creatinine Est GFR ( Amer) Est GFR (Non-Af Amer) BUN/Creatinine Ratio Glucose Lactic Acid Calcium Magnesium Total Bilirubin AST ALT Alkaline Phosphatase Troponin I 0.04 H* B-Natriuretic Peptide Total Protein Albumin Globulin Albumin/Globulin Ratio Procalcitonin Urine Color Yellow Urine Appearance Cloudy Urine pH 5.0 Ur Specific [place] 1.018 Urine Protein 2+(100 mg/dl) A Urine Ketones Negative Urine Blood Negative Urine Nitrate Negative Urine Bilirubin Negative Urine Urobilinogen Negative Ur Leukocyte Esterase Negative Urine WBC (Auto) Trace(0-5/hpf) Urine RBC (Auto) Absent Urine Bacteria Absent Granular Casts Present A Urine Glucose Negative Urine Ascorbic Acid * A 11/16/17 11/16/17 11/16/17 20:11 21:45 23:56 WBC RBC Hgb Hct MCV MCH MCHC RDW Plt Count MPV Neut % (Auto) Lymph % (Auto) [place] % (Auto) Eos % (Auto) Baso % (Auto) Absolute Neuts (auto) Absolute Lymphs (auto) Absolute Monos (auto) Absolute Eos (auto) Absolute Basos (auto) Absolute Nucleated RBC Nucleated RBC % INR (Anticoag Therapy) APTT Patient Temperature Not Reportable ABG pH 7.10 L* 7.16 L* ABG pH (Temp Correct) Not Reportable ABG pCO2 137 H* 127 H* ABG pCO2 (Temp Corrct Not Reportable ABG pO2 103 H 95 ABG pO2 (Temp Correct Not Reportable ABG HCO3 32.6 H 35.0 H ABG O2 Saturation 98.7 H 99.1 H ABG Base Excess 9.9 H 13.0 H Respiration Rate Not Reportable O2 Delivery Device Ventilator Type Not Reportable Vent Mode Not Reportable FiO2 55 Inspiratory Time Not Reportable PEEP Not Reportable Pressure Support Not Reportable Pressure Control Not Reportable EPAP 5 IPAP 18 BiPAP Not Reportable Sodium Potassium Chloride Carbon Dioxide Anion Gap BUN Creatinine Est GFR ( Amer) Est GFR (Non-Af Amer) BUN/Creatinine Ratio Glucose Lactic Acid Calcium Magnesium Total Bilirubin AST ALT Alkaline Phosphatase Troponin I 0.04 H* B-Natriuretic Peptide Total Protein Albumin Globulin Albumin/Globulin Ratio Procalcitonin Urine Color Urine Appearance Urine pH Ur Specific [place] Urine Protein Urine Ketones Urine Blood Urine Nitrate Urine Bilirubin Urine Urobilinogen Ur Leukocyte Esterase Urine WBC (Auto) Urine RBC (Auto) Urine Bacteria Granular Casts Urine Glucose Urine Ascorbic Acid 11/17/17 11/17/17 11/17/17 05:05 05:05 05:05 WBC 5.3 RBC 2.20 L Hgb 6.8 L Hct 23 L MCV 104 H MCH 31 MCHC 30 L RDW 19 H Plt Count 194 MPV 7.6 Neut % (Auto) 94.9 H Lymph % (Auto) 3.5 L [place] % (Auto) 1.4 Eos % (Auto) 0 Baso % (Auto) 0.2 Absolute Neuts (auto) 5.0 Absolute Lymphs (auto) 0.2 L Absolute Monos (auto) 0.1 Absolute Eos (auto) 0 Absolute Basos (auto) 0 Absolute Nucleated RBC 0 Nucleated RBC % 0 INR (Anticoag Therapy) 0.89 APTT 31.5 Patient Temperature ABG pH ABG pH (Temp Correct) ABG pCO2 ABG pCO2 (Temp Corrct ABG pO2 ABG pO2 (Temp Correct ABG HCO3 ABG O2 Saturation ABG Base Excess Respiration Rate O2 Delivery Device Ventilator Type Vent Mode FiO2 Inspiratory Time PEEP Pressure Support Pressure Control EPAP IPAP BiPAP Sodium 145 Potassium 5.3 H Chloride 101 Carbon Dioxide 40 H Anion Gap 4 BUN 59 H Creatinine 1.34 H Est GFR ( Amer) 47.0 Est GFR (Non-Af Amer) 38.9 BUN/Creatinine Ratio 44.0 H Glucose 119 H Lactic Acid Calcium 8.8 Magnesium 2.1 Total Bilirubin AST ALT Alkaline Phosphatase Troponin I B-Natriuretic Peptide Total Protein Albumin Globulin Albumin/Globulin Ratio Procalcitonin Urine Color Urine Appearance Urine pH Ur Specific [place] Urine Protein Urine Ketones Urine Blood Urine Nitrate Urine Bilirubin Urine Urobilinogen Ur Leukocyte Esterase Urine WBC (Auto) Urine RBC (Auto) Urine Bacteria Granular Casts Urine Glucose Urine Ascorbic Acid Studies: 11/16/17 CXR IMPRESSION: 1. LEFT BASILAR INFILTRATE, RECOMMEND FOLLOW-UP CHEST X-RAYS TO RESOLUTION. 2. COPD. 11/16/17 CT Head IMPRESSION: 1. NO EVIDENCE FOR GROSS ACUTE INFARCT, MASS EFFECT OR HEMORRHAGE. 2. 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 3. FINDINGS SUGGESTIVE OF MILD CHRONIC SMALL VESSEL ISCHEMIC CHANGES 11/16/17 EKG Sinus Tach Impression: 72F with MDS, severe copd on home o2 presents with COPD exacerbation 2/2 community acquired pneumonia Plan: Neuro - AMS - 2/2 hypercapnea - CT head negative for acute process CV - tachycardia - 2/2 pna and copd exacerbation - BP stable - tte pending Pulm - copd exacerbation - hypercapnea improving - solumedrol iv q12 - nebulizers q4 and prn - abx for pna - bipap - monitor abg ID - cap - left basilar infiltrate on cxr - ceftriaxone and azithro - f/u blood cultures - urine pneumo/legionella ag negative - ua negative - serial lactates - iv hydration GI - diet as tolerated Renal - john - creatinine improving Heme - MDS - monitor cbc - keep hgb > 7 - transfuse 1 unit prb today Endo - check fs Lines - piv PPx - gi/dvt Full Code - family to discuss goals of care Critical Care Time: 50 minutes
[2017-11-17] MEDS ORDERED: Aspirin EC TAB* 81 MG TAB.EC PO SCH (09:00)
--- NOTE | 2017-11-17 12:33 | ECHO ---
Patient: CARMEN THOMAS [facility] Rec#: [id number] : 1945 Date: 11/17/2017 Age: 72y Height: 158.5 cm / 62.4 in Weight: 57 kg / 125.6 lbs Sex: F BSA: 1.58 Room#: ICU 2 Admit Date#: 11/16/2017 Type: Inpatient Referring: Ovi St Reading: Reginaldo Harding MD Ophthalmic Medical Assistant: Katey PortilloRDCS,RDMS Transthoracic Echocardiogram Indication: SOB, Edema BP: 130/62 HR: 82 Rhythm: NSR Findings History: COPD, chronic hypoxic respiratory failure Technical Comments: The study quality is good. The study is technically limited due to poor parasternal windows. Left Ventricle: The left ventricular chamber size is decreased. There is a prominent septal knuckle. Global left ventricular wall motion and contractility are within normal limits. There is normal left ventricular systolic function. The estimated ejection fraction is 55-60%. Abnormal left ventricular diastolic filling is observed, consistent with impaired relaxation. Left Atrium: The left atrium is slightly dilated. Right Ventricle: The right ventricular chamber size and systolic function are within normal limits. Right Atrium: The right atrial cavity size is normal. Aortic Valve: The aortic valve structure is not well visualized. The aortic valve leaflets are mildly thickened. There is a trace of aortic regurgitation. There is no evidence of aortic stenosis. Mitral Valve: The mitral valve leaflets are mildly thickened. There is a trace of mitral regurgitation. There is no evidence of mitral stenosis. Tricuspid Valve: The tricuspid valve leaflets are normal. There is trace tricuspid regurgitation. There is evidence of mild pulmonary hypertension. Pulmonic Valve: The pulmonic valve structure is not well visualized. There is no evidence of pulmonic valve thickening. There is no evidence of pulmonic regurgitation. Pericardium: There is no significant pericardial effusion. A left pleural effusion is present. Aorta: The ascending aorta is not well visualized. The aortic arch is not well visualized. The aortic root is normal in size. Pulmonary Artery: The main pulmonary artery is not well visualized. Venous: The inferior vena cava appears normal in size. There is less than 50% respiratory change in the inferior vena cava dimension. Conclusions Global left ventricular wall motion and contractility are within normal limits. There is normal left ventricular systolic function. The estimated ejection fraction is 55-60%. The right ventricular chamber size and systolic function are within normal limits. There is a trace of aortic regurgitation. There is a trace of mitral regurgitation. There is trace tricuspid regurgitation. There is evidence of mild pulmonary hypertension. There is no significant pericardial effusion. A left pleural effusion is present. Measurements Name Value Normal Range RVIDd (AP) 2D 3.1 cm (0.9 - 2.6) RVDdMajor (2D) 2.8 cm (2.2 - 4.4) RAd ISD 4CH 4.8 cm (3.4 - 4.9) RA (A4C)W 3.7 cm (2.9 - 4.6) IVSd (2D) 0.9 cm (0.6 - 1) LVPWd (2D) 0.9 cm (0.6 - 1) LVIDd (2D) 2.8 cm (3.6 - 5.4) LVIDs (2D) 2 cm - LV FS (2D) 30 % (25 - 45) Aortic Annulus 2 cm (1.4 - 2.6) Ao root diameter (2D) 2.6 cm (2.1 - 3.5) LA dimension (AP) 2D 3 cm (2.3 - 3.8) LAd ISD 4CH 5.3 cm (2.9 - 5.3) LA ISD 4CH W 5 cm (2.5 - 4.5) Name Value Normal Range LA ESV BP (A/L) index 36 ml/m2 - Name Value Normal Range MV E-wave Vmax 0.9 m/sec - MV deceleration time 140 msec - MV A-wave Vmax 1 m/sec - MV E:A ratio 0.9 ratio - LV septal e' Vmax 0.11 m/sec - LV lateral e' Vmax 0.12 m/sec - LV E:e' septal ratio 8 ratio - LV E:e' lateral ratio 7.5 ratio - Name Value Normal Range AV Vmax 1.8 m/sec - AV VTI 38 cm - AV peak gradient 14 mmHg - AV mean gradient 8 mmHg - LVOT Vmax 1.6 m/sec - LVOT VTI 32 cm - LVOT peak gradient 10 mmHg - LVOT mean gradient 4 mmHg - Name Value Normal Range TR Vmax 2.7 m/sec - TR peak gradient 29 mmHg - RAP 8 mmHg - RVSP 37 mmHg - IVC diameter 1.9 cm - Name Value Normal Range PV Vmax 1.1 m/sec - PV peak gradient 5 mmHg -
[2017-11-17] MEDS: cefTRIAXone(*) 1 GM in NS 0.9% 50 ML* 50 ML IVPB SCH (17:09)
[2017-11-17] MEDS: Azithromycin IV(*) 500 MG in NS 0.9% 250 ML* 250 ML IVPB SCH (17:09)
--- NOTE | 2017-11-18 02:32 | PN ---
Progress Note - Progress Note Date of Service: 11/18/17 Note: ABC response An ABC alert was called at 0115, from ED I arrived nearly immediately to identify she had been made DNR/I during the preceding dayshift. No ACLS protocol was performed. She was unresponsive and apneic. Ambu-bag ventilation was begun to allow family update via phone and confirmation of DNR/I. Daughter was informed and did not wish to rescind the DNR/I, but stated she would call her father (the patient's ). They return called and advised us to keep the DNR/I in place and they would be in [place]. We continued to ventilatory support in the interim. She did not have any spontaneous respirations and in fact developed an upgoing Babinski on the L and lost her corneal and occulocephalic reflexes. Given her sudden loss of mentation and respiratory drive with an ABG that was the best of this admission, it is highly likely she has had a catastrophic intracranial event, likely hemorrhage. The family arrived and was apprised of the findings, presumptive diagnosis, & prognosis. I recommended bolus morphine and withdrawal of respiratory support to allow for natural passing. Questions were sought and answered to their satisfaction. They agreed to comfort only measures. 10mg IV morphine was administered and ambu- assist was withdrawn. She did not attempt spontaneous respirations and appeared comfortable until passing was confirmed at 0309.
[2017-11-18] MEDS ORDERED: Morphine VIAL* 10 MG/ML 1 ML VIAL ONE (02:36)
[2017-11-18] MEDS ORDERED: Morphine VIAL* 10 MG/ML 1 ML VIAL IV ONE (02:45)
--- NOTE | 2017-11-18 03:40 | DS ---
Date of Admission: 11/16/2017 Date of Discharge: 11/18/2017 Discharge Diagnoses CVA COPD exacerbation severe hypercapneic respiratory failure L basilar pneumonia myelodysplastic syndrome HPI Flavia Coyne is a 72-year-old female with past medical history of myelodysplasia, severe COPD with chronic respiratory failure, 4.5 L 24 hours a day, who usually resides in [place], [place]. She has had 2 weeks of outpatient diagnosis of pneumonia, sounds like she was treated with what family thinks was azithromycin first in June and then again likely in July along with a prednisone taper at some point, but not within the last few months. The patient follows up with Dr. Rita Howard for Procrit shots for her myelodysplasia. She last received on 11/04/17. This usually improves her fatigue, but she has actually worsened since that time, very tired, stopped going out of the house since the last 10 days, stopped walking in the last 36 hours (last Thursday night), then has been wheelchair bound. She saw Dr. Lim , who referred her to the emergency room. She was found to be requiring 6 L of oxygen, of note, I guess recorded 88% on her 4.5 L. She has been tachycardic up to 109. She had initial elevated troponin of 0.04. EKG shows sinus tachycardia. No ischemic changes. She had a CT of the head, which showed an old left lacunar infarct. No acute process. An ABG is ordered and pending given her lethargy and confusion in the room. She did, of note, have an elevated bicarb of 44, previous baseline last year in the high 30s to 40s. Her daughter, Carmen Mace, gives most of the history, says on review of systems, she denies fever, is chronically cool, has no nausea, vomiting, abdominal pain, or night sweats. She has been constipated and had mag citrate within the last week. Last bowel movement was approximately Thursday. She had been sleeping a lot, very fatigued, denies any chest pain or pressure. The patient was not initially able to give much history, just stating Flavia Alejandro in response to most of her questions, then she would eventually say 2017 and [place], [place] as the time and location respectively and said she was feeling a little bit better since presentation. Chest x-ray showed concern for left basilar infiltrate. She is being started on ceftriaxone, azithromycin after urine culture is obtained. Blood cultures were also obtained. Hospital Course Mrs Coyne was admitted to ICU and placed on trial of BiPap as it was felt were she intubate she would be unlikely to be successfully extubated. Despite her severe hypercapnea, her respiratory status, mentation, & respiratory failure gradually improved until the night of 11/18 when she developed sudden loss of mentation, respiratory arrest, and severe hypoxia. She had been converted to DNR/I status on 11/17 and so respiratory support was successfully performed with ambu-bag. However, correcting her hypoxia did not resolve her sudden development of coma and respiratory arrest. Pulses were strong. Abdomen soft. She rapidly progressed to severe hypertension associated with development of upgoing L Babinski & loss of corneal and occulocephalic reflexes indicating a catastrophic intracranial event. She was maintained comfortably on ambu-bag support until her and family could arrive at which time they were apprised of with their permission a bolus of morphine as administered and respiratory support withdrawn allowing her to pass naturally at 0309 on 2017. Discharge Exam absent spontaneous respirations absent cardiac sounds absent radial and carotid pulses Time for Discharge: >30minutes with the majority of time spent assessing the patient's evolving symptoms, explaining the finding to the family, & providing comfort services
[2017-11-18 03:42] VITALS: BP 183/93
--- NOTE | 2017-11-18 07:54 | RAD ---
Indication: Hypoxia. Acute on chronic respiratory failure. Dyspnea on exertion. Weakness. COPD. Comparison: November 16, 2017 Technique: Supine chest 0215 hours Report: Significant opacification of the LEFT lung new compared with the 2017 exam. Moderate prominence of the interstitial markings. Cardiomegaly. Prominent central pulmonary vasculature with peripheral attenuation. Healed fracture of the LEFT humeral neck with medial displacement and varus angulation. IMPRESSION: #. New LEFT lung opacification may represent mucus plugging and atelectasis or pneumonia. #. Stigmata of chronic obstructive pulmonary disease and probable pulmonary arterial hypertension.
== END 2017-11-18 03:09 | disposition expired | DRG 193 ==
LOC: ED 10:37 → MED 15:48 → OBSVTOIN 15:48 → ICU 17:15
PROVIDERS: ADMIT Internal Medicine; ATTEND Internal Medicine
PROC: 5A09357 Assistance with Respiratory Ventilation, Less than 24 Consecutive Hours, Continuous Positive Airway Pressure (ICD-10-PCS; 2017-11-16)
PROC: 30233N1 Transfusion of Nonautologous Red Blood Cells into Peripheral Vein, Percutaneous Approach (ICD-10-PCS; principal; 2017-11-17)
DX: J18.9 Pneumonia, unspecified organism (principal); J96.21 Acute and chronic respiratory failure with hypoxia; R40.20 Unspecified coma; I63.9 Cerebral infarction, unspecified; J96.22 Acute and chronic respiratory failure with hypercapnia; J44.1 Chronic obstructive pulmonary disease with (acute) exacerbation; J44.0 Chronic obstructive pulmonary disease with (acute) lower respiratory infection; N17.9 Acute kidney failure, unspecified; D46.9 Myelodysplastic syndrome, unspecified; I10 Essential (primary) hypertension; K64.9 Unspecified hemorrhoids; K59.00 Constipation, unspecified; R00.0 Tachycardia, unspecified; Z66 Do not resuscitate; R09.2 Respiratory arrest; R29.6 Repeated falls; Z51.5 Encounter for palliative care; Z91.81 History of falling; Z80.3 Family history of malignant neoplasm of breast; Z80.0 Family history of malignant neoplasm of digestive organs; Z87.891 Personal history of nicotine dependence; Z87.01 Personal history of pneumonia (recurrent); Z99.3 Dependence on wheelchair; Z86.73 Personal history of transient ischemic attack (TIA), and cerebral infarction without residual deficits
CPT/HCPCS: 36415; 36600; 70450; 71045; 80048; 80053; 81003; 81015; 82803; 83605; 83735; 83880; 84145; 84484; 85025; 85610; 85730; 86850; 86900; 86901; 86922; 87040; 87086; 87641; 87899; 93005; 93306; 94640; 99283; A9270-GY; J0456; J0696; J1644; J2270; J2920; J2930; P9040